=== PATIENT | male | born 1975 | race Hispanic/Latino ===

== ENCOUNTER 2022-01-24 02:45 | Emergency (ER) | payer BC, OTHER ==
[~2022-01-24] VITALS: Ht 175.3 cm; Wt 104.8 kg
[2022-01-24 03:07] VITALS: BP 157/94
== END 2022-01-24 04:22 | disposition home or self-care (01) ==
LOC: EDH 02:45
DX: S63.501A Unspecified sprain of right wrist, initial encounter (principal); S40.021A Contusion of right upper arm, initial encounter; S50.01XA Contusion of right elbow, initial encounter; S60.211A Contusion of right wrist, initial encounter; Z90.49 Acquired absence of other specified parts of digestive tract; E11.9 Type 2 diabetes mellitus without complications; W10.9XXA Fall (on) (from) unspecified stairs and steps, initial encounter; Y93.89 Activity, other specified; Y92.89 Other specified places as the place of occurrence of the external cause; Y99.8 Other external cause status
CPT/HCPCS: 73060; 73080; 73110